=== PATIENT | male | born 1965 | race Caucasian/White ===

== ENCOUNTER → 2018-08-21 | Outpatient (CLI) | payer OTHER ==
[2018-08-21 08:55] LABS: ALBUMIN 3.7 gm/dl (3.1-4.5); BUN 21 mg/dl (7-24); CHLORIDE 105 mmol/L (98-107); SODIUM 139 mmol/L (136-145)
[2018-08-21 09:00] LABS: ALKALINE PHOSPHATASE 45 U/L (45-117); BILIRUBIN, DIRECT < 0.1 mg/dL (0.0-0.2); CHOLESTEROL 213 mg/dL (<200); CREATININE 1.25 mg/dL (0.70-1.30); HDL CHOLESTEROL 33 mg/dl (40-60); SGOT/AST 28 IU/L (3-35); SGPT/ALT 37 U/L (12-78); TOTAL PROTEIN 7.2 gm/dL (6.4-8.2); TRIGLYCERIDES 462 mg/dl (<150)
[2018-08-21 09:03] LABS: POTASSIUM 4.1 mmol/L (3.5-5.1)
== END | disposition home or self-care (01) ==
LOC: LAB 00:18
PROVIDERS: Family Medicine
DX: E78.49 Other hyperlipidemia (principal); R73.01 Impaired fasting glucose; I10 Essential (primary) hypertension

== ENCOUNTER → 2018-11-30 | Day surgery (SDC) | payer OTHER ==
[~2018-11-30] VITALS: Ht 173.9 cm; Wt 122.5 kg
[~2018-11-30] MED LIST: ATENOLOL50 M1 PO; HYDROCHLOROTH12.5 M3 PO; LANSOPRAZOLE30 MG PO; LISINOPRIL20 MG PO
[2018-11-30 07:00] VITALS: BP 121/57
[2018-11-30 08:27] VITALS: BP 104/48
[2018-11-30 08:42] VITALS: BP 118/73
[2018-11-30 08:55] VITALS: BP 101/63
== END | disposition home or self-care (01) ==
LOC: SDC 11-26 12:30
DX: Z12.11 Encounter for screening for malignant neoplasm of colon (principal); K29.50 Unspecified chronic gastritis without bleeding; K21.9 Gastro-esophageal reflux disease without esophagitis; K64.8 Other hemorrhoids; K57.30 Diverticulosis of large intestine without perforation or abscess without bleeding; I10 Essential (primary) hypertension; K44.9 Diaphragmatic hernia without obstruction or gangrene; Z98.890 Other specified postprocedural states; Z80.0 Family history of malignant neoplasm of digestive organs; Z79.899 Other long term (current) drug therapy